=== PATIENT | female | born 1955 | race Caucasian/White ===

== ENCOUNTER 2016-08-24 09:51 | Emergency (ER) | payer BC ==
[~2016-08-24] VITALS: Ht 167.6 cm; Wt 82.1 kg
[~2016-08-24 09:51] MED LIST: NOHOMEMEDS
[2016-08-24 10:43] LABS: BASOPHIL COUNT 0.1 K/uL (0-0.1); EOSINOPHIL (%) 1.4 % (0-5); EOSINOPHIL COUNT 0.1 K/uL (0-0.3); HEMATOCRIT 39.7 % (36.0-46.0); IMMATURE GRANULOCYTE (%) 0.5 % (0.0-0.7); IMMATURE GRANULOCYTE COUNT 0.1 K/uL; INSTRUMENT ABS NEUTROPHIL CT 7.1 K/uL; LYMPHOCYTE COUNT 1.5 K/uL (1.0-2.8); MCH 28.6 PG (29.0-34.0); MCV 86.7 FL (83-99); MEAN PLAT.VOLUME 9.4 uM^3 (9.5-12.4); MONOCYTE (%) 5.2 % (3-12); MONOCYTE COUNT 0.5 K/uL (0-0.8); NEUTROPHIL (%) 76.1 % (45-76); NEUTROPHIL COUNT 7.1 K/uL (1.8-6.4); PLATELET COUNT 246 K/uL (156-360); RBC DIS.WIDTH-CV 12.9 % (11.8-14.6); RBC DIS.WIDTH-SD 40.4 % (39-53); RED BLOOD COUNT 4.58 M/uL (3.80-5.20); WHITE BLOOD COUNT 9.3 K/uL (4.1-10.2)
[2016-08-24 10:52] LABS: D-DIMER ELISA 0.25 mg/L FEU (< 0.57)
[2016-08-24 10:56] LABS: CHLORIDE 109 mEq/L (99-109); POTASSIUM 4.8 mEq/L (3.7-5.4); SODIUM 140 mEq/L (136-147)
[2016-08-24 10:59] LABS: ANION GAP 6 MEQ/L (2-14)
[2016-08-24 11:00] LABS: TOTAL BILIRUBIN 0.4 mg/dL (0.0-1.0)
[2016-08-24 11:02] LABS: TROP-I INTERPRETATION NEGATIVE; TROPONIN-I < 0.01 ng/mL (0.0-0.30)
[2016-08-24 11:03] LABS: GFR ESTIMATE (CALCULATED) > 59 mL/min/
[2016-08-24 11:13] LABS: GLUCOSE 110 mg/dL (70-99)
[2016-08-24 11:17] LABS: ALKALINE PHOSPHATASE 76 IU/L (3-129)
[2016-08-24 11:18] LABS: UREA NITROGEN (BUN) 17 mg/dL (9-23)
[2016-08-24 12:50] LABS: TROP-I INTERPRETATION NEGATIVE; TROPONIN-I < 0.01 ng/mL (0.0-0.30)
[2016-08-24 13:07] VITALS: BP 112/74
== END 2016-08-24 13:19 | disposition home or self-care (01) ==
LOC: EME 09:51
PROVIDERS: Emergency Medicine
DX: R07.89 Other chest pain (principal); K21.9 Gastro-esophageal reflux disease without esophagitis
CPT/HCPCS: 71020; 80053; 84484; 85025; 85379; 93005; 99281; 99284